=== PATIENT | male | born 1975 | race Two or more races ===

== ENCOUNTER 2024-12-31 05:08 | Emergency (ER) | payer MEDICAID, OTHER ==
--- NOTE | 2024-12-31 06:00 | PRN ---
Misceleneous Note Note Note RAPID MEDICAL ASSESSMENT NOTE: 49-year-old male presents with left shoulder pain and decreased range of motion for the past 5 days. Denies any injury. Physical exam: General: Awake, alert and oriented. No acute distress. Skin: Skin in warm, dry and intact without rashes or lesions. HEENT: The head is normocephalic and atraumatic. Conjunctivae are clear without exudates or hemorrhage. Sclera is non-icteric. Neck: Normal range of motion. No JVD. Cardiac: Regular rate Respiratory: No signs of respiratory distress. No Stridor. Neurological: The patient is awake, alert and oriented to person, place, and time with normal speech. Speech is clear. There is no facial asymmetry. Extremity: Decreased range of motion left upper extremity Plan: Imaging, pain control Sign out to oncoming provider pending full evaluation and re-assessment. RAGHAVENDRA BERMUDEZ MD Dec 31, 2024 05:59
--- NOTE | 2024-12-31 06:16 | DVH ---
EXAM: XY L SHOULDER 2+ VIEW XRAY HISTORY: Left shoulder pain COMPARISON: None TECHNIQUE: 3 views of the left shoulder were performed. IMPRESSION: No acute fracture or dislocation. Calcifications likely in the location of the supraspinatus tendon can be seen in calcific tendinitis.
--- NOTE | 2024-12-31 06:40 | ED.PDOC ---
Musculoskeletal HPI Comments 49 y.o male presents to the ED for a chief complaint of left shoulder pain that started 5 days ago. 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 Patient reports pain worsened 2 days ago and is experiencing non radiating tightness. No recent trauma, falls, previous fractures to region. He denies chest pain, SOB, nausea, vomiting or chills. Denies medical history. Chief Complaint: Upper Extremity Time Seen by MD: 06:17 Reviewed Notes: Nurses Notes, Medications, Allergies Allergies: Coded Allergies: NO KNOWN ALLERGIES (Unverified , 12/31/24) Information Source: Patient Mode of Arrival: Ambulatory Location: Left Extremity Location: Shoulder Timing: Days Severity: Moderate Able to Move Extremity: No Bear Weight: Limited Pain: Moderate Mechanism: None Circumstances: Spontaneous Onset of Symptoms: Spontaneous Symptoms: Pain DVT Risk Factors: NONE Associated signs and symptoms: Shoulder pain Past Medical History PAST MEDICAL HISTORY: Denies Surgical History: Denies all surgeries Family History Family History: Reviewed,noncontributory to illness, No family hx of Cancer, No family hx of DM, No family hx of Heart nidhi, No family hx of HTN, No family hx ofKidney nidhi, No family hx of Liver nidhi, No family hx of Lung nidhi, No family hx of Stroke Social History Smoker: Non-Smoker Alcohol: Denies ETOH Use Drugs: Denies Drug Use Lives In: Home Constitutional: denies: chills, diaphoresis, fatigue, fever, malaise, sweats, weakness, others EENTM: denies: blurred vision, double vision, ear bleeding, ear discharge, ear drainage, ear pain, ear ringing, eye pain, eye redness, hearing loss, mouth pain, mouth swelling, nasal discharge, nose bleeding, nose congestion, nose pain, photophobia, tearing, throat pain, throat swelling, voice changes, others Respiratory: denies: cough, hemoptysis, orthopnea, SOB at rest, shortness of breath, SOB with excertion, stridor, wheezing, others Cardiovascular: denies: chest pain, dizzy spells, diaphoresis, Dyspnea on exertion, edema, irregular heart beat, left arm pain, lightheadedness, palpitations, PND, syncope, others Gastrointestinal: denies: abdomen distended, abdominal pain, blood streaked bowels, constipated, diarrhea, dysphagia, difficulty swallowing, hematemesis, melena, nausea, poor appetite, poor fluid intake, rectal bleeding, rectal pain, vomiting, others Genitourinary: denies: burning, dysuria, flank pain, frequency, hematuria, incontinence, penile discharge, penile sore, pain, testicle pain, testicle swelling, urgency, others Neurological: denies: dizziness, fainting, headache, left sided numbness, left sided weakness, numbness, paresthesia, pre-existing deficit, right sided numbness, right sided weakness, seizure, speech problems, tingling, tremors, weakness, others Musculoskeletal: reports: others (left shoulder pain ); denies: back pain, gout, joint pain, joint swelling, muscle pain, muscle stiffness, neck pain Integumetry: denies: bruises, change in color, change in hair/nails, dryness, laceration, lesions, lumps, rash, wounds, others Allergic/Immunocompromised: denies: Difficulty Healing, Frequent Infections, Hives, Itching, others Hematologic/Lymphatic: denies: anemia, blood clots, easy bleeding, easy bruising, swollen glands, others Endocrine: denies: excessive hunger, excessive sweating, excessive thirst, excessive urination, flushing, intolerance to cold, intolerance to heat, unexplained weight gain, unexplained weight loss, others Psychiatric: denies: anxiety, bipolar disorder, depression, hopeless, panic disorder, schizophrenia, sleepless, suicidal, others All Other Systems: Reviewed and Negative Physical Exam General Appearance: No Apparent Distress, Normal HEENT: Normal ENT Inspection, Pharynx Normal, TMs Normal Neck: Full Range of Motion, Non-Tender, Normal, Normal Inspection Respiratory: Chest Non-Tender, Lungs Clear, No Accessory Muscle Use, No Respiratory Distress, Normal Breath Sounds Cardiovascular: No Edema, No JVD, No Murmur, No Gallop, Normal Peripheral Pulses, Regular Rate/Rhythm Breast Exam: Deferred Gastrointestinal: No Organomegaly, Non Tender, No Pulsatile Mass, Normal Bowel Sounds, Soft Genitalia: Deferred Pelvic: Deferred Rectal: Deferred Extremities: Tender (left shoulder ), Other (left shoulder: no deformity or redness ) Musculoskeletal : Apperance: Normal Neurologic: Alert, 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 Was a procedure done?: No Differential Diagnosis EXT Differential Diagnosis: Fracture, Sprain, Dislocation, DJD, Contusion, Strain, Rheumatoid, Neurovascular injury, Arthritis, Bursitis, Other (rotator cuff injuury) X-Ray, Labs, Meds, VS Vital Signs Date Time Temp Pulse Resp B/P (MAP) Pulse Ox O2 Delivery O2 Flow Rate FiO2 12/31/24 05:42 98.3 79 18 133/86 (102) 96 Time of 1ST Reevaluation: 06:39 Reevaluation 1ST: Unchanged Patient Education/Counseling: Diagnosis, Treatment, Prognosis, Need For Follow Up Family Education/Counseling: No Family Present Additional Information i ordered and reviewed the left shoulder xray and agree with radiologist's interpretation of the result. i also ordered medications for his pain pt has evidence of left supraspinatus tendionitis. he is stable for discharge with rest, followup with PCP. i will prescribe nsaid for him and advised for him to use warm compress and ROM exercises as soon as able to Departure 1 Departure Time of Disposition: 06:58 Impression: Primary Impression: Supraspinatus tendinitis Qualified Codes: M75.92 - Shoulder lesion, unspecified, left shoulder Disposition: 01 HOME / SELF CARE / HOMELESS Condition: Stable e-Prescriptions Ibuprofen Micronized (MOTRIN TABLET) 600 Mg Tb 600 MG PO TID PRN, #40 TAB *Black box warning-NSAIDS can increase risk of MD & hypertension, GI irritation, ulceration, bleed, perferation. Do not use post cardiac surgery. Use short duration/lowest effective dose. Prov: JUAN SINGER MD 12/31/24 Discharged With: Self Critical Care Note Critical Care Time?: No Stability Stability form required: No I personally scribed for JUAN SINGER MD ([email or web address]) on 12/31/24 at 06:39. Electronically submitted by Jessica Resendez ([facility]). JUAN SINGER MD Dec 31, 2024 06:39
[2024-12-31] MEDS ORDERED: IBU600T PO (06:59)
[2024-12-31 07:19] VITALS: BP 148/109; PULSE 80; RESP 16; TEMP 98.2; O2SAT 96
[2024-12-31] MEDS: ACETAMINOPHEN 325 MG TAB PO ONE (07:19)
[2024-12-31] MEDS: KETOROLAC TROMETH 30 MG/ML 1ML VIAL IM ONE (07:19)
== END 2024-12-31 07:25 | disposition home or self-care (01) ==
LOC: ER 05:08
DX: M77.9 Enthesopathy, unspecified (principal)
CPT/HCPCS: 73030; 96372; 99283; J1885